=== PATIENT | female | born 1960 | race Caucasian/White ===

== ENCOUNTER → 2018-12-01 | Day surgery (SDC) | payer BC ==
--- NOTE | 2018-11-30 15:50 | NUR ---
Per physician discretion: patient to take all medications including eliquis with sips of water on day of procedure.
[2018-11-30 16:25] LABS: BASOPHILS % 0.6 % (0.0-1.0); EOSINOPHILS # (AUTO) 0.1 (0.0-0.4); EOSINOPHILS % 1.7 % (0.0-6.0); HEMATOCRIT 43.7 % (34.2-44.1); HEMOGLOBIN 14.1 g/dL (12.0-16.0); LYMPHOCYTES # (AUTO) 1.4 (1.0-3.2); MEAN CORPUSCULAR HEMOGLOBIN 28.1 pg (28-32); MEAN CORPUSCULAR HGB CONC 32.3 g/dL (31-35); MEAN CORPUSCULAR VOLUME 87.2 fL (81-99); MONOCYTES # (AUTO) 0.5 (0.2-0.8); MONOCYTES % 8.2 % (4.4-11.3); NEUTROPHILS # (AUTO) 4.3 (2.1-6.9); NEUTROPHILS % 67.3 % (38.7-80.0); PLATELET COUNT 265 x10e3/uL (140-360); RED BLOOD COUNT 5.01 x10e6/uL (3.6-5.1); RED CELL DISTRIBUTION WIDTH 13.9 % (11.7-14.4)
[2018-11-30 16:36] LABS: INR 0.97; PROTHROMBIN TIME 13.8 seconds (11.9-14.5)
[2018-11-30 16:44] LABS: ALANINE AMINOTRANSFERASE 39 IU/L (0-55); ALBUMIN 3.7 g/dL (3.5-5.0); ALBUMIN/GLOBULIN RATIO 1.4 (0.8-2.0); ALKALINE PHOSPHATASE 57 IU/L (40-150); ANION GAP 12.9 mmol/L (8-16); BLOOD UREA NITROGEN 11 mg/dL (7-26); BUN/CREATININE RATIO 14 (6-25); CALCIUM 8.9 mg/dL (8.4-10.2); CARBON DIOXIDE 24 mmol/L (22-29); CHLORIDE 103 mmol/L (98-107); CREATININE, SERUM 0.78 mg/dL (0.57-1.11); EST GLOMERULAR FILTRATION RATE > 60 ML/MIN (60-); GLUCOSE 92 mg/dL (74-118); POTASSIUM 3.9 mmol/L (3.5-5.1); SODIUM 136 mmol/L (136-145)
[~2018-12-01] VITALS: Ht 175.3 cm; Wt 72.6 kg
[2018-12-01] VITALS (7 sets, daily range): BP systolic 78–106; BP diastolic 47–80
[~2018-12-01] MED LIST: AMIODARONE HCL200 MG PO; BENZOCAINE 20% SPR 60 ML CAN ONE; CARTIA XT240 MG PO; DIGOXIN125 MCG PO; FENTANYL CITRATE/PF 100MCG/2 ML INJ ONE; METOPROLOL TART50 MG PO; MIDAZOLAM HCL 2 MG/2 ML VIAL ONE; PROPOFOL IV EMULSION 10 MG/ML 20 ML VIAL ONE; SODIUM CHLORIDE 0.9% 1000ML 1,000 ML ONE; eliquis PO
--- NOTE | 2018-12-01 12:30 | NUR ---
1230 Received pt from FELICIA cardioversion with FELICIA to Rm #9, Mac sedation back to baseline.Received report Any Gage. Identifier x2 Resp shallow and regular denies necessity to defecate or urinate, iv infusing w/o s/s infiltration Denies Cp or SOb Family at Bs for dc by 1330pm
--- NOTE | 2018-12-01 13:30 | NUR ---
1330 dc home per private care Denies CP or sob Monitor NSR Iv removed site /o s/s infiltration coban dresing place.Monitor remain NSR. 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
--- NOTE | 2018-12-06 14:24 | Operative Report ---
DATE OF PROCEDURE: December 01, 2018 PROCEDURE: Direct current cardioversion. INDICATIONS: Atrial fibrillation. PROCEDURE IN DETAIL: The patient was brought to the endoscopy suite in a fasting state after written informed consent was obtained. Pads were placed on the patient's chest in the anterior and posterior position. Sedation was performed by anesthesiology. FELICIA was performed. There was no evidence of thrombus in the left atrium or left atrial appendage. The initial synchronized biphasic waveform shock at 50J was unsuccessful. This was followed by a shock at 100J with successful yarsanism of normal sinus rhythm. The patient tolerated the procedure well without any immediate complications. EKG was ordered. IMPRESSION: Successful direct current cardioversion with yarsanism of sinus rhythm. RECOMMENDATIONS: The patient's medications were adjusted with discontinuation of diltiazem, digoxin and metoprolol tartrate. She was started on metoprolol succinate. She was continued on Eliquis. 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
== END | disposition home or self-care (01) ==
LOC: CATH LAB 10:44 → EDSTATUS 14:30
PROVIDERS: ATTEND Family Medicine
DX: I48.91 Unspecified atrial fibrillation (principal); F41.9 Anxiety disorder, unspecified; Z01.812 Encounter for preprocedural laboratory examination; Z79.02 Long term (current) use of antithrombotics/antiplatelets
CPT/HCPCS: 36415; 80053; 85025; 85610; 92960; 93005; 93312; 93320; 93325; J2250; J2704; J7030; 93307

== ENCOUNTER → 2019-04-13 | Day surgery (SDC) | payer BC ==
[2019-04-10 10:26] LABS: BASOPHILS % 0.6 % (0.0-1.0); EOSINOPHILS # (AUTO) 0.1 (0.0-0.4); EOSINOPHILS % 2.4 % (0.0-6.0); HEMATOCRIT 37.7 % (34.2-44.1); HEMOGLOBIN 12.4 g/dL (12.0-16.0); LYMPHOCYTES # (AUTO) 1.7 (1.0-3.2); LYMPHOCYTES % 30.9 % (18.0-39.1); MEAN CORPUSCULAR HEMOGLOBIN 30.2 pg (28-32); MEAN CORPUSCULAR HGB CONC 32.9 g/dL (31-35); MEAN CORPUSCULAR VOLUME 91.7 fL (81-99); MONOCYTES # (AUTO) 0.5 (0.2-0.8); MONOCYTES % 9.9 % (4.4-11.3); NEUTROPHILS % 55.8 % (38.7-80.0); PLATELET COUNT 205 x10e3/uL (140-360); RED BLOOD COUNT 4.11 x10e6/uL (3.6-5.1); RED CELL DISTRIBUTION WIDTH 13.5 % (11.7-14.4)
[2019-04-10 10:40] LABS: INR 1.06; PROTHROMBIN TIME 14.3 seconds (11.9-14.5)
[2019-04-10 10:47] LABS: ALBUMIN/GLOBULIN RATIO 1.3 (0.8-2.0); ANION GAP 10.6 mmol/L (8-16); CALCIUM 9.3 mg/dL (8.4-10.2); CREATININE, SERUM 0.97 mg/dL (0.57-1.11); POTASSIUM 4.6 mmol/L (3.5-5.1)
[~2019-04-13] VITALS: Ht 175.3 cm; Wt 70.8 kg
[2019-04-13] VITALS (13 sets, daily range): BP systolic 92–134; BP diastolic 53–78
[~2019-04-13] MED LIST changes: -BENZOCAINE 20% SPR 60 ML CAN ONE; +FUROSEMIDE40 MG PO; +HEPARIN SOD (PORCINE) 1000 UNIT/ML 30ML ONE; +HEPARIN SOD/SOD CHLORIDE 2,000 ML ONE; +IOPAMIDOL 370 MG/ML 200 ML INFUS..BTL INJ ONE; +LIDOCAINE HCL 2% LOCAL 20 ML VIAL ONE; +LISINOPRIL2.5 MG PO; +METOPROLOL SUCC50 MG PO; +NITROGLYCERIN/D5W 200 MCG/ML 250 ML ONE; -PROPOFOL IV EMULSION 10 MG/ML 20 ML VIAL ONE; +VERAPAMIL HCL 2.5 MG/ML 2 ML VIAL ONE
--- OUTSIDE RECORDS SUMMARY | 2019-04-13 06:48 | XMS REPORT ---
Author Author [facility] Address Unknown Phone Unavailable Care Team Providers Care Seasoning Mixer Name Role Phone Unavailable Unavailable Payers Payer Name Policy Type Policy Number Effective Date Expiration Date Problems This patient has no known problems. Allergies, Adverse Reactions, Alerts Allergy Name Allergy Type Status Severity Reaction(s) Onset Date Inactive Date Treating Clinician Comments No Known Allergies DA Active U 2019-02-03 00:00:00 Medications This patient has no known medications. Results Test Description Test Time Test Comments Text Results Atomic Results Result Comments BASIC METABOLIC PANEL 2019-02-08 03:55:00 SODIUM (test code=NA) 139 mEq/L 134-147 POTASSIUM (test code=K) 3.8 mEq/L 3.4-5.0 CHLORIDE (test code=CL) 111 mEq/L 100-108 CARBON DIOXIDE (test code=CO2) 22 mEq/L 21-33 ANION GAP (test code=GAP) 10 0-20 GLUCOSE (test code=GLU) 82 mg/dL 70-110 BLOOD UREA NITROGEN (test code=BUN) 13 mg/dL 7-18 GLOMERULAR FILTRATION RATE (test code=GFR) 85.4 80-90 Units of measure=ml/min/1.73 m2 CREATININE (test code=CREAT) 0.7 mg/dL 0.6-1.3 CALCIUM (test code=CA) 8.3 mg/dL 8.0-10.5 CBC W/O [id number] 03:39:00* Test Item Value Reference Range Comments WHITE BLOOD CELL (test code=WBC) 7.60 x10 3/uL 4.5-11.0 RED BLOOD CELL (test code=RBC) 4.06 x10 6/uL 3.54-5.02 HEMOGLOBIN (test code=HGB) 11.2 g/dL 11.0-15.0 HEMATOCRIT (test code=HCT) 36.2 % 33.0-45.0 MEAN CELL VOLUME (test code=MCV) 89.2 fL 81.0-99.0 MEAN CELL HGB (test code=MCH) 27.6 pg 27.0-33.0 MEAN CELL HGB CONCETRATION (test code=MCHC) 30.9 g/dL 33.0-37.0 RED CELL DISTRIBUTION WIDTH CV (test code=RDW) 15.9 % 11.5-14.5 RED CELL DISTRIBUTION WIDTH SD (test code=RDW-SD) 51.2 fL 37.0-54.0 PLATELET COUNT (test code=PLT) 189 x10 3/uL 150-400 MEAN PLATELET VOLUME (test code=MPV) 9.8 fL 7.0-9.0 COAGULATION TIME [id number] 13:29:00* Test Item Value Reference Range Comments COAGULATION TIME ACTIVATED (test code=ACT) 354 SECONDS 105-167 COAGULATION TIME [id number] 13:28:00* Test Item Value Reference Range Comments COAGULATION TIME ACTIVATED (test code=ACT) 366 SECONDS 105-167 COAGULATION TIME [id number] 13:28:00* Test Item Value Reference Range Comments COAGULATION TIME ACTIVATED (test code=ACT) 357 SECONDS 105-167 COAGULATION TIME [id number] 13:28:00* Test Item Value Reference Range Comments COAGULATION TIME ACTIVATED (test code=ACT) 335 SECONDS 105-167 COAGULATION TIME [id number] 13:27:00* Test Item Value Reference Range Comments COAGULATION TIME ACTIVATED (test code=ACT) 259 SECONDS 105-167 COAGULATION TIME [id number] 13:26:00* Test Item Value Reference Range Comments COAGULATION TIME ACTIVATED (test code=ACT) 123 SECONDS 105-167 - CT ANGIO [id number] 15:19:00 Name: KLEVER ROBERTS [facility] : 1960 Age/S: 58 / F [address] [place] [address] Unit #: [id number] Loc: [facility] [place] [address] Phys: Nishant Adams MD Acct: [id number] Dis Date: Status: REG CLI PHONE #: [phone] Exam Date: 02/03/2019 1441 FAX #: [phone] Reason: I48.1 PERSISTENT A-FIB EXAMS: CPT CODE: [id number] CT ANGIO CHEST [address] ANGIOGRAM WITH IV CONTRAST (PULMONARY VEIN MAPPING) 02/03/19. MEDICAL HISTORY: Atrial fibrillation. COMPARISON STUDIES: None. ADMINISTERED CONTRAST: 100 mL of Isovue [address] imaging performed at this location utilizes radiation dose optimization techniques which include one or more of the following: -Automated exposure control -Adjustment of the mA and/or kV according to patient size -Use of iterative reconstruction technique CT Radiation Dose DLP 823 mGy-cm FINDINGS: Contiguous 2 mm axial images of the chest were obtained with IV contrast using the CT angiogram protocol with a 64-slice multidetector scanner. Images were obtained from the thoracic inlet through below the level of the adrenal glands. 3-D reconstructions are provided. Particular attention was given to the left atrium and pulmonary veins. The acquired data was used to create multiplanar reformats and volume rendering reconstructions with the use of the work station. Pulmonary vein measurements (measure plane obtained 5 mm distal to vessel ostia): Right superior pulmonary vein (RSPV): 18 mm. Right inferior pulmonary vein (RIPV): 17 mm. Left superior pulmonary vein (LSPV): 18 mm. Left inferior pulmonary vein (LIPV): 17 mm. IMPRESSION: 1. Pulmonary vein diameters as described. 2. At least a configuration of the left atrial appendage. No filling defects/thrombus within the left atrium or left atrial appendage currently. 3. Thoracic aorta is normal in caliber, no dissection. 4. Visualized medial lung tavares are clear. 5. This was mediastinum shows no adenopathy. Pl ease note that vessels bifurcating at a distance equal to or greater michael n 5 mm from the expected outer margin of the left atrium are considered to have a common ostium. PAGE 1 Signed Report (CONTINUED) Name: KLEVER ROBERTS [facility] [place] : 1960 Age/S: 58 / F [address] [place] [address] [address] Unit #: [id number] Loc: [facility] [place] [address] Phys: Nishant Adams MD Acct: [id number] Dis Date: Status: REG CLI PHONE #: [phone] Exam Date: 02/03/2019 1441 FAX #: [phone] Reason: I48.1 PERSISTENT A-FIB EXAMS: CPT CODE: [id number] CT ANGIO CHEST 39216 < Continued> SL:01 at 2690 Reported and signed by: Clifton Ivory M.D. CC: Nishant Alonzo MD Technologist:Jt Barrera RT(R)(CT) CTDI: DLP: Trnscb Date/Time: 02/03/2019 (0768) Sean PAGE 2 Signed Report - XR CHEST 2 [id number] 13:38:00 FAX: Nishant Mendieta [phone] [place]: St: PRE Name: KLEVER ARNDT [facility] : [birth year] Age/S: 58/F [address] [place] [address] Unit #: [id number] Loc: [place] [address] Phys: Nishant Adams MD Acct: [id number] Dis Date: Status: PRE SD PHONE #: [phone] Exam Date: 02/03/2019 1333 FAX #: [phone] Reason: PERSISTENT A-FIB EXAMS: CPT CODE: [id number] XR CHEST 2 V 88833 CHEST RADIOGRAPHS - PA AND LATERAL: COMPARISON: None CLINICAL HISTORY: PERSISTENT A-FIB The cardiopericardial silhouette is within normal limits. Lungs are clear. No vascular congestion or pneumothorax. IMPRESSION: No acute pulmonary abnormality. at 5935 Reported and signed by: Surendra Taylor M.D. CC: Nishant Alonzo MD Technologist: RT Khurram(Elian)(Ady) Trnscrd Date/Time/By: 02/03/2019 (3045) : By: [email or web address] Orig Print D/T: S: 02/03/2019 (5485) PAGE 1 Signed Report BASIC METABOLIC [id number] 13:25:00* Test Item Value Reference Range Comments SODIUM (test code=NA) 140 mEq/L 134-147 POTASSIUM (test code=K) 5.0 mEq/L 3.4-5.0 CHLORIDE (test code=CL) 105 mEq/L 100-108 CARBON DIOXIDE (test code=CO2) 30 mEq/L 21-33 ANION GAP (test code=GAP) 10 0-20 GLUCOSE (test code=GLU) 89 mg/dL 70-110 BLOOD UREA NITROGEN (test code=BUN) 19 mg/dL 7-18 GLOMERULAR FILTRATION RATE (test code=GFR) 63.9 80-90 Units of measure=ml/min/1.73 m2 CREATININE (test code=CREAT) 0.9 mg/dL 0.6-1.3 CALCIUM (test code=CA) 9.1 mg/dL 8.0-10.5 CBC W/AUTO [id number] 12:59:00* Test Item Value Reference Range Comments WHITE BLOOD CELL (test code=WBC) 7.95 x10 3/uL 4.5-11.0 RED BLOOD CELL (test code=RBC) 4.88 x10 6/uL 3.54-5.02 HEMOGLOBIN (test code=HGB) 13.5 g/dL 11.0-15.0 HEMATOCRIT (test code=HCT) 43.2 % 33.0-45.0 MEAN CELL VOLUME (test code=MCV) 88.5 fL 81.0-99.0 MEAN CELL HGB (test code=MCH) 27.7 pg 27.0-33.0 MEAN CELL HGB CONCETRATION (test code=MCHC) 31.3 g/dL 33.0-37.0 RED CELL DISTRIBUTION WIDTH CV (test code=RDW) 14.8 % 11.5-14.5 RED CELL DISTRIBUTION WIDTH SD (test code=RDW-SD) 46.5 fL 37.0-54.0 PLATELET COUNT (test code=PLT) 245 x10 3/uL 150-400 MEAN PLATELET VOLUME (test code=MPV) 9.6 fL 7.0-9.0 NEUTROPHIL % (test code=NT%) 65.2 % 56.0-77.0 IMMATURE GRANULOCYTE % (test code=IG%) 0.4 % 0.0-2.0 LYMPHOCYTE % (test code=LY%) 26.3 % 14.0-32.0 MONOCYTE % (test code=MO%) 6.9 % 4.8-9.0 EOSINOPHIL % (test code=EO%) 0.8 % 0.3-3.7 BASOPHIL % (test code=BA%) 0.4 % 0.0-2.0 NUCLEATED RBC % (test code=NRBC%) 0.0 % 0-0 NEUTROPHIL # (test code=NT#) 5.19 x10 3/uL 2.0-7.6 IMMATURE GRANULOCYTE # (test code=IG#) 0.03 x10 3/uL 0.00-0.03 LYMPHOCYTE # (test code=LY#) 2.09 x10 3/uL 1.0-3.8 MONOCYTE # (test code=MO#) 0.55 x10 3/uL 0.1-0.8 EOSINOPHIL # (test code=EO#) 0.06 x10 3/uL 0.0-0.2 BASOPHIL # (test code=BA#) 0.03 x10 3/uL 0.0-0.2 NUCLEATED RBC # (test code=NRBC#) 0.00 x10 3/uL 0.0-0.1 MANUAL DIFF REQUIRED (test code=MDIFF) NO PROTHROMBIN [id number] 12:59:00* Test Item Value Reference Range Comments PROTHROMBIN TIME PATIENT (test code=PTP) 14.8 SECONDS 9.3-12.9 INTERNATIONAL NORMAL RATIO (test code=INR) 1.3 0.8-1.2 TARGET INR BY INDICATION Indication INR1. Prophylaxis of venous thrombosis 2.0 - 3.0 (orthopedic surgery), Prophylaxis of venous thrombosis (other than high-risk surgery), Treatment of Deep Vein Thrombosis/Pulmonary Embolism, Prevention of systemic embolism - Tissue heart valves, Acute Myocardial Infarction (to prevent systemic embolism), Valvular heart disease, Atrial Fibrillation, Bileaflet mechanical valve in aortic position.2. Mechanical prosthetic valves (high risk), 2.5 - 3.5 Presence of Lupus Anticoagulant or Antiphospholipid Antibodies, Prevention of systemic embolism - Acute Myocardial Infarction (to prevent recurrent infarct).
--- NOTE | 2019-04-13 10:00 | NUR ---
1000am Received pt to On Site Nurse recovery rm #9 Identiferx2. C Rt vascade.NO bleeding or hematoma , aware down till 330pm.Pt aware of POC and know necessity to keep HOB down. PPx4 Dp/Pt strong and palpable.Abdomen soft and non tender denies necessity to defecate or urinate. Offer po intake tolerating well. Edgardo available at .Denies Cp or SOB No gross issues pain pallor,pressure or dysrhythmia. Will give dc planning when returns pt has f/o Dr Virk office 2wks. [phone]. Side rails up call light at bedside. Bed in low position. ds/rn
--- NOTE | 2019-04-13 11:43 | NUR ---
1148 Hand off to Any Acevedo [facility], No fix. Dr Sully Perez to Rt Groin Site w/o s/s hematoma PPx4 at BS No C/o CP or SOB.
--- NOTE | 2019-04-13 12:40 | NUR ---
1240 Received pt form Any Acevedo. No distress. Rt groin remain intact NO oozing or hematoma st Vascade closure site PPx4 present Denies C/o or CP vs stable and stable EKG. ds/rn
--- NOTE | 2019-04-13 14:00 | NUR ---
1400 HOB elevated and walked pt in room ok to dc at [address] Gamboa new order. Rt groin site noted w/o s/s hematoma or oozing. PPx4 palpable. Family here and POC removed. Has copies aware of importance of f/o care Removed iv site w/o s/s infiltration 5oocc infused. Coban dressing and 2x2 To car per w/c denies CP or SOB. Has family local city driver NO gross issues pain pallor pressure or dysrhythmia ds/rn.
--- NOTE | 2019-04-13 17:43 | Operative Report ---
DATE OF PROCEDURE: 04/13/2019 SURGEON: Joyce Virk MD PROCEDURE: 1. Selective coronary angiography x2. 2. Left heart catheterization. INFORMED CONSENT: Informed consent was obtained and documented in the chart. SEDATION: 4 mg Versed, 100 mcg fentanyl. PROCEDURE IN DETAIL: The patient was brought to the cardiac catheterization laboratory in a fasting state after written informed consent was obtained. Bilateral groins and right wrist were prepped and draped in the usual sterile fashion. 1% lidocaine was infiltrated over the right groin to achieve local anesthesia. Systemic sedation was given as above. Micropuncture needle was used to access the right femoral artery. A 6-Anguillan sheath was placed via modified Seldinger technique. A 6-Anguillan JL4 was inserted and advanced into the ascending aorta. The left main coronary artery was cannulated under fluoroscopic guidance. Selective coronary angiography was performed. The JL4 was removed over the wire and a 6-Anguillan JR4 was inserted and advanced into the ascending aorta. The right coronary artery was cannulated under fluoroscopic guidance. Selective coronary angiogram was performed. The JR4 was removed and a pigtail catheter was inserted and advanced into the left ventricle, hemodynamic measurements were performed. The pigtail catheter was removed. Angiogram was performed of the right external iliac system. The 6-Anguillan sheath was removed and closure device was used to achieve hemostasis. No immediate complications were demonstrated. FINDINGS: The left main coronary artery bifurcates into the LAD and circumflex systems. The LAD is a moderate caliber vessel that wraps around the apex. There was no angiographic evidence of disease. The circumflex is a moderate caliber vessel with a moderate-sized OM1 and a smaller OM2. There was no angiographic evidence of disease. The right coronary artery is a medium caliber vessel that gives rise to the PDA, there was no angiographic evidence of disease. LV pressure 110/3 mmHg, LVEDP 19 mmHg. IMPRESSION: 1. Nonischemic cardiomyopathy, suspected tachycardia mediated. 2. Normal coronary arteries. RECOMMENDATIONS: Continue medication management. Joyce Virk MD ABS/MODL /[id number]
== END | disposition home or self-care (01) ==
LOC: CATH LAB 06:28
PROVIDERS: ATTEND Internal Medicine
DX: I11.0 Hypertensive heart disease with heart failure (principal); I50.20 Unspecified systolic (congestive) heart failure; I48.91 Unspecified atrial fibrillation; R94.31 Abnormal electrocardiogram [ECG] [EKG]; R00.1 Bradycardia, unspecified; Z79.01 Long term (current) use of anticoagulants; Z01.812 Encounter for preprocedural laboratory examination
CPT/HCPCS: 36415; 80053; 85025; 85610; 93458; C1760; C1769 ×2; J1644; J2001; J2250; J7030; Q9967